=== PATIENT | male | born 1970 | race Caucasian/White ===

== ENCOUNTER 2021-09-06 15:17 | Emergency (ER) | payer MEDICARE, SELFPAY ==
[2021-09-06 15:54] VITALS: BP 148/92; PULSE 94; RESP 18; TEMP 36.8; O2SAT 99
--- NOTE | 2021-09-06 17:46 | ED.URI ---
HPI - URI/Sore Throat General Chief Complaint: Upper Respiratory Infection Stated Complaint: chest congestion causing pain Source: patient and RN notes reviewed Mode of arrival: ambulatory History of Present Illness HPI Narrative: This is a 50-year-old male who presented to urgent care with complaints of nasal and chest congestion, uncontrollable coughing chest discomfort due to excessive coughing, and shortness of breath , frontal and maxillary tenderness that started on Monday. The patient denies CP, palpitation, extremity numbness, lightheadedness, dizziness, constipation, diarrhea, chills, or fever. Related Data Home Medications Medication Instructions Recorded Confirmed lurasidone [Latuda] mg 09/06/21 trazodone 09/06/21 zolpidem 09/06/21 Allergies Allergy/AdvReac Type Severity Reaction Status Date / Time Penicillins Allergy Unknown RASH Verified 09/06/21 16:54 Review of Systems Review of Systems: A 14 organ system Review of Systems was performed and pertinent positives included in the HPI, otherwise remaining ROS is negative. [facility] Family History Family History (Updated 09/06/21 @ 17:49 by ANNITA BarnesP-C) Other Family history non-contributory Exam Narrative: GENERAL: This is a well-nourished, well-developed patient, in no apparent distress. HEAD: normocephalic, atraumatic. Frontal and maxillary tenderness, nasal congestion EYES: PERRL. Sclera clear/white. Vision is grossly intact. EARS: External ears normal, auditory canals clear and without drainage, TMs normal without perforation. Hearing grossly intact. NOSE: External nose normal with no obvious nasal discharge, nares without redness, no rhinorrhea. THROAT: Mucous membranes moist, posterior pharynx clear. NECK: Neck supple, non-tender without lymphadenopathy, masses or thyromegaly. CARDIOVASCULAR: Regular rate and rhythm without murmurs, gallops, or rubs. RESPIRATORY: Clear to auscultation. Breath sounds equal bilaterally. No wheezes, rales, or rhonchi. GASTROINTESTINAL: Abdomen soft, non-tender, nondistended. Bowel sounds are active. No hepato-splenomegaly, or palpable masses. No guarding. SKIN: warm, intact with no suspicious lesions or rash, good texture and turgor. NEURO: awake, alert, and oriented to person, place and time. There were no obvious focal neurologic abnormalities. Steady gait EXTREMITIES: Normal range of motion. No edema. No calf tenderness. Negative Homans sign bilaterally. BACK: Nontender without deformity or crepitance. No flank tenderness. Course Course Emergency Course: Patient will be treated for cellulitis with charged with doxycycline, Tessalon Perles, guaifenesin, Flonase, and Claritin with albuterol Vital Signs Vital signs: Vital Signs Temperature 98.2 F 09/06/21 15:54 Pulse Rate 94 09/06/21 15:54 Respiratory Rate 18 09/06/21 15:54 Blood Pressure 148/92 H 09/06/21 15:54 Pulse Oximetry 99 09/06/21 15:54 Temperature 98.2 F 09/06/21 15:54 Pulse Rate 94 09/06/21 15:54 Respiratory Rate 18 09/06/21 15:54 Blood Pressure 148/92 H 09/06/21 15:54 Pulse Oximetry 99 09/06/21 15:54 MDM - URI/Sore Throat MDM Narrative Medical decision making narrative: Patient treated for cellulitis Differential Diagnosis Differential diagnosis: Likely upper respiratory infection, otitis media, sinusitis, viral infection and bronchitis Discharge Plan Discharge Clinical Impression: Sinusitis Qualifiers: Sinusitis location: frontal Chronicity: acute Recurrence: non-recurrent Qualified Code(s): J01.10 - Acute frontal sinusitis, unspecified Patient Disposition: Home, Self-Care Condition: Stable Instructions: Antibiotic Form, Sinusitis (ED) Additional Instructions: What are the symptoms of sinusitis? - Common symptoms of sinusitis include: ?Stuffy or blocked nose ?Thick yellow or green discharge from the nose ?Pain in the teeth ?Pain or pressure in the face - This often feels worse
== END 2021-09-06 17:48 | disposition home or self-care (01) ==
PROVIDERS: Emergency Provider Nurse Practitioner; PCP Internal Medicine
DX: J01.10 Acute frontal sinusitis, unspecified (principal)
CPT/HCPCS: 99213; G0463